=== PATIENT | male | born 1985 | race Caucasian/White ===

== ENCOUNTER 2023-09-11 10:02 | Emergency (ER) | payer MEDICAID ==
[~2023-09-11] VITALS: Ht 185.4 cm; Wt 81.6 kg
[2023-09-11 10:23] VITALS: BP 150/108; PULSE 91; RESP 18; TEMP 98.5; O2SAT 98
[2023-09-11] MEDS ORDERED: ONDANSETRON 4 MG/2 ML VIAL IVP ONE (10:35)
[2023-09-11] MEDS ORDERED: NACL 0.9% 1,000 ML IV ONE (10:35)
[2023-09-11 11:07] LABS: BASOPHILS # (AUTO) 0.1 K/uL (0.00-0.22); BASOPHILS % (AUTO) 0.6 % (0.0-2.0); EOSINOPHILS % (AUTO) 0.1 % (0.0-4.0); HEMATOCRIT 42.3 % (36-52); HEMOGLOBIN 14.5 g/dL (12.0-18.0); LYMPHOCYTES # (AUTO) 1.4 K/uL (2.0-11.5); LYMPHOCYTES % (AUTO) 11.6 % (20.5-51.1); MEAN CORPUSCULAR HEMOGLOBIN 29 pg (27-31); MEAN CORPUSCULAR HGB CONC 34 g/dL (33-37); MEAN CORPUSCULAR VOLUME 85.7 fL (80-94); MONOCYTES # (AUTO) 0.9 K/uL (0.8-1.0); MONOCYTES % (AUTO) 7.5 % (1.7-9.3); NEUTROPHILS # (AUTO) 9.6 K/uL (1.8-7.7); NEUTROPHILS % (AUTO) 80.2 % (42.2-75.2); PLATELET COUNT (AUTO) 286 K/uL (140-450); RED BLOOD CELL COUNT(AUTO) 4.94 MIL/uL (4.20-6.10); RED CELL DISTRIBUTION WIDTH 13.9 % (11.6-13.7)
[2023-09-11 11:27] LABS: ANION GAP 16.3 (8-16); CALCIUM 10.4 mg/dL (8.5-10.1); CREATININE 0.9 mg/dL (0.6-1.3); POTASSIUM 4.3 mmol/L (3.5-5.1)
[2023-09-11 11:33] LABS: ALANINE AMINOTRANSFERASE 75 U/L (12-78); ALBUMIN 4.4 g/dL (3.4-5.0); ALCOHOL, BLOOD < 3 mg/dL (<10); ALKALINE PHOSPHATASE 71 U/L (50-136); ASPARTATE AMINOTRANSFERASE 57 U/L (15-37); BILIRUBIN,DIRECT 0.2 mg/dL (0.0-0.3); CREATINE KINASE, TOTAL 685 U/L (39-308); LIPASE 37 U/L (16-77); TOTAL BILIRUBIN 0.9 mg/dL (0.0-1.0); TOTAL PROTEIN, SERUM 9.5 g/dL (6.4-8.2)
[2023-09-11] MEDS ORDERED: chlordiazePOXIDE 25 MG CAP PO ONE (11:50)
[2023-09-11] MEDS ORDERED: LIB25 PO (12:15)
[2023-09-11] MEDS ORDERED: AMOX1TAB8 PO (12:17)
[2023-09-11 12:21] LABS: CKMB RELATIVE INDEX 0.6 (0.0-2.5); CREATINE KINASE MB 3.9 ng/mL (0-3.6)
== END 2023-09-11 12:30 | disposition home or self-care (01) ==
LOC: MED 10:02
DX: S61.412A Laceration without foreign body of left hand, initial encounter (principal); S06.0X0A Concussion without loss of consciousness, initial encounter; S00.12XA Contusion of left eyelid and periocular area, initial encounter; F10.239 Alcohol dependence with withdrawal, unspecified; I10 Essential (primary) hypertension; Z79.899 Other long term (current) drug therapy; Z79.2 Long term (current) use of antibiotics; Y90.0 Blood alcohol level of less than 20 mg/100 ml; W01.198A Fall on same level from slipping, tripping and stumbling with subsequent striking against other object, initial encounter; Y92.89 Other specified places as the place of occurrence of the external cause; Y93.89 Activity, other specified; Y99.8 Other external cause status
CPT/HCPCS: 36415; 70450; 70486; 71045; 72125; 73130; 80048; 80076; 82550; 82553; 83690; 84484; 85025; 90471; 90715; 93005; 96361; 96374; 99285; G0482; J2405; J7030

== ENCOUNTER 2023-09-21 15:46 | Emergency (ER) | payer MEDICAID ==
[~2023-09-21] VITALS: Ht 182.9 cm; Wt 90.7 kg
[~2023-09-21 15:46] MED LIST: AMOX1TAB8 PO; CHLO-836 PO
[2023-09-21 16:29] VITALS: BP 149/106; PULSE 97; RESP 18; TEMP 97; O2SAT 98
== END 2023-09-21 17:21 | disposition left against medical advice (07) ==
LOC: MED 15:46
DX: F10.10 Alcohol abuse, uncomplicated (principal); Z53.21 Procedure and treatment not carried out due to patient leaving prior to being seen by health care provider
CPT/HCPCS: 99281

== ENCOUNTER 2024-05-15 19:26 | Emergency (ER) | payer MEDICAID ==
[~2024-05-15] VITALS: Ht 188 cm; Wt 79.4 kg
[~2024-05-15 19:26] MED LIST changes: +CHLO-757 PO; -CHLO-836 PO
[2024-05-15 19:39] VITALS: BP 162/104; PULSE 73; RESP 18; TEMP 98.4; O2SAT 96
[2024-05-15 20:40] LABS: BASOPHILS % (AUTO) 0.5 % (0.0-2.0); EOSINOPHILS # (AUTO) 0.1 K/uL (0-0.4); EOSINOPHILS % (AUTO) 1.4 % (0.0-4.0); HEMATOCRIT 39.6 % (36-52); HEMOGLOBIN 13.2 g/dL (12.0-18.0); LYMPHOCYTES # (AUTO) 1.8 K/uL (2.0-11.5); LYMPHOCYTES % (AUTO) 20.4 % (20.5-51.1); MEAN CORPUSCULAR HEMOGLOBIN 29 pg (27-31); MEAN CORPUSCULAR HGB CONC 33 g/dL (33-37); MEAN CORPUSCULAR VOLUME 87.5 fL (80-94); MONOCYTES # (AUTO) 0.8 K/uL (0.8-1.0); MONOCYTES % (AUTO) 9.3 % (1.7-9.3); NEUTROPHILS # (AUTO) 6.2 K/uL (1.8-7.7); NEUTROPHILS % (AUTO) 68.4 % (42.2-75.2); PLATELET COUNT (AUTO) 196 K/uL (140-450); RED BLOOD CELL COUNT(AUTO) 4.53 MIL/uL (4.20-6.10); RED CELL DISTRIBUTION WIDTH 13.6 % (11.6-13.7)
[2024-05-15 21:08] LABS: ALANINE AMINOTRANSFERASE 68 U/L (12-78); ALBUMIN 3.7 g/dL (3.4-5.0); ALKALINE PHOSPHATASE 47 U/L (50-136); ASPARTATE AMINOTRANSFERASE 23 U/L (15-37); CALCIUM 8.7 mg/dL (8.5-10.1); CARBON DIOXIDE 28.9 mmol/L (21-32); CHLORIDE 101 mmol/L (98-107); GFR ARICAN-AMERICAN 107 mL/min (>90); GFR NON ARICAN-AMERICAN 88 mL/min (>90); GLUCOSE 102 mg/dL (74-106); POTASSIUM 3.9 mmol/L (3.5-5.1); SODIUM SERUM 138 mmol/L (136-145); THYROID STIMULATING HORMONE 0.93 uIU/mL (0.34-3.74); TOTAL BILIRUBIN 0.3 mg/dL (0.0-1.0); TOTAL PROTEIN, SERUM 6.7 g/dL (6.4-8.2); UREA NITROGEN, BLOOD 19 mg/dL (7-18)
[2024-05-15] MEDS: amLODIPine 5 MG TAB PO ONE (21:19)
[2024-05-15] MEDS: ACETAMINOPHEN EXTRA STRENGTH 500 MG TAB PO ONE (21:21)
[2024-05-15] MEDS ORDERED: AMLO-271 PO (21:37)
[2024-05-15] MEDS ORDERED: HYDR25CA10 PO (21:37)
[2024-05-15 21:50] VITALS: BP 138/91; PULSE 78; RESP 16; TEMP 98.4; O2SAT 98
== END 2024-05-15 21:50 | disposition home or self-care (01) ==
LOC: MED 19:26
DX: R07.9 Chest pain, unspecified (principal); I10 Essential (primary) hypertension; R20.0 Anesthesia of skin; M54.2 Cervicalgia; R42 Dizziness and giddiness; Z79.899 Other long term (current) drug therapy
CPT/HCPCS: 36415; 71045; 80053; 84443; 84484; 85025; 93005; 99285; Q0092